=== PATIENT | female | born 1985 | race African-American/Black ===

== ENCOUNTER 2018-04-06 21:30 | Emergency (ER) | END 2018-04-06 22:59 | disposition home or self-care (01) ==

== ENCOUNTER 2018-04-10 12:11 | Emergency (ER) | END 2018-04-10 12:45 | disposition home or self-care (01) ==

== ENCOUNTER 2018-04-24 22:15 | Emergency (ER) | END 2018-04-25 02:37 | disposition home or self-care (01) ==

== ENCOUNTER 2018-06-05 09:23 | Emergency (ER) | END 2018-06-05 10:30 | disposition home or self-care (01) ==

== ENCOUNTER 2018-09-23 20:34 | Emergency (ER) | END 2018-09-24 02:25 | disposition home or self-care (01) ==

== ENCOUNTER 2019-06-15 18:44 | Emergency (ER) | payer OTHER ==
[~2019-06-15] VITALS: Ht 165.1 cm; Wt 77.8 kg
[~2019-06-15 18:44] MED LIST: ACET500C5 PO; ACYC400T2 PO; AMOX1TAB10 PO; BEN25 PO; CEPH-443 PO; CLOT30CR24 TOP; FLUC150T PO; HYDR-4011 PO; IBUP-1542 PO; METR70GE15 VAG; NAPR-985 PO; NPH10OT BOTH EARS; PREN1TAB62 PO; SODI44SP11 NASAL
[2019-06-15 18:51] VITALS: BP 137/88; PULSE 83; RESP 19; Ht 165.1 cm; Wt 77.8 kg
--- NOTE | 2019-06-15 19:08 | ERD ---
ER Documentation Chief Complaint Chief Complaint BUG BITES; ITCHING, THIS AM HPI 34 year old female presents to ED with bug bite on Right wrist. She is here mostly because of her son who she brought in (also brought in a daughter for same reason). She states all 3 have bug bites on them x 2 days. The bites itch, no bleeding. Not warm to touch, no discharge, no fever,chills. Deny other med hx. Has not taken meds ROS All systems reviewed and are negative except as per history of present illness. Medications Home Meds Active Scripts Diphenhydramine Hcl* (Benadryl*) 25 Mg Cap, 25 MG PO Q6 PRN for ITCHING/RASH, #30 TAB Prov:DEMETRICE NERI PA-C 06/15/19 Naproxen* (Naprosyn*) 500 Mg Tablet, 500 MG PO BID PRN for PAIN AND/OR INFLAMMATION, #30 TAB Prov:TINO,RADHA 09/24/18 Acyclovir* (Acyclovir*) 400 Mg Tablet, 400 MG PO TID for 10 Days, #30 TAB Prov:TINO,RADHA 09/24/18 Cephalexin* (Keflex*) 500 Mg Capsule, 500 MG PO Q6 for 10 Days, #40 CAP Prov:TINO,RADHA 09/24/18 Metronidazole* (Metrogel* Vaginal) 0.75% -70 Gram Gel.w.appl, 1 APPFUL VAG BID for 7 Days, TUB Prov:TINO,RADHA 09/24/18 Hydrocodone/Acetaminophen ([place] 5-325 Tablet) 1 Each Tablet, 1 TAB PO QHS PRN for PAIN, #5 TAB Prov:VIRI PAL PA-C 06/05/18 Clotrimazole* (Clotrimazole* AF) 1% - 30 Gm Cream.gm., 1 APPLIC TOP BID for 7 Days, #1 TUB Prov:BILLIE NASSAR PA-C 04/25/18 Fluconazole* (Diflucan*) 150 Mg Tablet, 150 MG PO ONCE, #1 TAB Prov:BILLIE NASSAR PA-C 04/25/18 Neomycin/Polymyxin/Hydrocort* (Cortisporin* Otic) 10 Ml Susp, 4 DROP BOTH EARS QID for 7 Days, EA Prov:MULU RIZVI PA-C 04/10/18 Hydrocodone/Acetaminophen ([place] 5-325 Tablet) 1 Each Tablet, 1 TAB PO Q6H PRN for PAIN LEVEL 6-10, #7 TAB Prov:TINO,RADHA 04/06/18 Ibuprofen* (Motrin*) 600 Mg Tab, 600 MG PO Q6H PRN for PAIN AND OR ELEVATED TEMP, #30 TAB Prov:TINO,RADHA 04/06/18 Amoxicillin/Potassium Clav (Amox-Clav 875-125 mg Tablet) 875-125 mg Tab, 1 TAB PO BID for 10 Days, #20 TAB Prov:TINO,RADHA 04/06/18 Sodium Chloride (Saline Nasal Sturgeon) 45 Ml Sturgeon, 1 SPRAY NASAL ONCE, #1 BOTTLE Prov:VIRI PAL PA-C 04/15/16 Acetaminophen* (Tylophen*) 500 Mg Capsule, 1 CAP PO Q6H PRN for PAIN AND OR ELEVATED TEMP, #20 CAP Prov:DELIA LUCIANO NP 02/14/16 Reported Medications Vit-Iron Fumarate-FA ( Vitamin Tablet) 1 Each Tablet, 1 TAB PO DAILY, TAB 05/28/15 Allergies Allergies: Coded Allergies: latex (Verified Allergy, Unknown, 04/15/16) PMhx/Soc History of Surgery: No Anesthesia Reaction: No Hx Neurological Disorder: No Hx Respiratory Disorders: No Hx Cardiac Disorders: No Hx Psychiatric Problems: No Hx Miscellaneous Medical Probl: Yes (ALLERGY TO LATEX) Hx Alcohol Use: No Hx Substance Use: No Hx Tobacco Use: No FmHx Family History: No diabetes Physical Exam Vitals Vital Signs Date Temp Pulse Resp B/P (MAP) Pulse Ox O2 O2 Flow FiO2 Time Delivery Rate 06/15/19 98.1 83 19 137/88 98 18:51 (104) Physical Exam Const: No acute distress Head: Atraumatic . Resp: Clear to auscultation bilaterally Cardio: Regular rate and rhythm, Abd: Soft, non tender, non distended. Skin: Small 5 cm bug bite on right wrist. not warm, not tender, no d/c Ext: No cyanosis, or edema Neur: Awake and alert Psych: Normal Mood and Affect Procedures/MDM ED COURSE: The patient was stable throughout ED course. I kept the patient informed of laboratory and diagnostic imaging results throughout the ED course. MEDICAL DECISION MAKING: Patient is a 34 yr old female presenting with a bug bite on her right wrist. She has no concerns for infection. I have low suspicion for cellulitis, abscess, systemic infection. Pt was reassured and d/c with Benadryl. Vital signs were reviewed. Patient is afebrile. Patient was not hypoxic. Patient was hemodynamically stable. Patient was told to follow up with primary care for further care and management. PRESCRIPTION: Benadryl DISCHARGE: At this time, patient is stable for discharge and outpatient management. I have instructed the patient to follow-up with their primary care physician in 1-2 days. I have discussed with the patient the possibility of needing to see a specialist for further workup and imaging studies if symptoms persist. I have instructed the patient to promptly return to the ER for any new or worsening symptoms including increased pain, fever, nausea, vomiting, weakness or LOC. The patient expressed understanding of and agreement with this plan. All questions were answered. Home care instructions were provided. Disclaimer: Inadvertent spelling and grammatical errors are likely due to EHR/dictation software use and do not reflect on the overall quality of patient care. Also, please note that the electronic time recorded on this note does not necessarily reflect the actual time of the patient encounter. Departure Diagnosis: Primary Impression: Bite wound Condition: Stable Patient Instructions: Animal Bite, General Referrals: [facility] YOU HAVE RECEIVED A MEDICAL SCREENING EXAM AND THE RESULTS INDICATE THAT YOU DO NOT HAVE A CONDITION THAT REQUIRES URGENT TREATMENT IN THE EMERGENCY DEPARTMENT. FURTHER EVALUATION AND TREATMENT OF YOUR CONDITION CAN WAIT UNTIL YOU ARE SEEN IN YOUR DOCTORS OFFICE WITHIN THE NEXT 1-2 DAYS. IT IS YOUR RESPONSIBILITY TO MAKE AN APPOINTMENT FOR FOLOW-UP CARE. IF YOU HAVE A PRIMARY DOCTOR --you should call your primary doctor and schedule an appointment IF YOU DO NOT HAVE A PRIMARY DOCTOR YOU CAN CALL OUR PHYSICIAN REFERRAL HOTLINE AT IF YOU CAN NOT AFFORD TO SEE A PHYSICIAN YOU CAN CHOSE FROM THE FOLLOWING [facility] CLINICS [facility] [address] [facility] [address] [facility]. [facility] [address] [facility] [address] [facility] [address] [facility]. [facility] [address] [facility]. [facility] YOU HAVE RECEIVED A MEDICAL SCREENING EXAM AND THE RESULTS INDICATE THAT YOU DO NOT HAVE A CONDITION THAT REQUIRES URGENT TREATMENT IN THE EMERGENCY DEPARTMENT. FURTHER EVALUATION AND TREATMENT OF YOUR CONDITION CAN WAIT UNTIL YOU ARE SEEN IN YOUR DOCTORS OFFICE WITHIN THE NEXT 1-2 DAYS. IT IS YOUR RESPONSIBILITY TO MAKE AN APPOINTMENT FOR FOLOW-UP CARE. IF YOU HAVE A PRIMARY DOCTOR --you should call your primary doctor and schedule and appointment IF YOU DO NOT HAVE A PRIMARY DOCTOR YOU CAN CALL OUR PHYSICIAN REFERRAL HOTLINE AT . IF YOU CAN NOT AFFORD TO SEE A PHYSICIAN YOU CAN CHOSE FROM THE FOLLOWING [facility] INSTITUTIONS: [facility] [address] [place] [address] [facility] [address] [place] [address] [facility] [address] [place] [address] Additional Instructions: Call your primary care doctor TOMORROW for an appointment during the next 1-2 days.See the doctor sooner or return here if your condition worsens before your appointment time. DEMETRICE NERI PA-C Jun 15, 2019 19:08
== END 2019-06-15 19:00 | disposition home or self-care (01) ==
LOC: E/R 18:44
DX: S60.861A Insect bite (nonvenomous) of right wrist, initial encounter (principal); W57.XXXA Bitten or stung by nonvenomous insect and other nonvenomous arthropods, initial encounter; Y92.9 Unspecified place or not applicable; Z91.040 Latex allergy status
CPT/HCPCS: 99283